=== PATIENT | female | born 2000 | race Two or more races ===

== ENCOUNTER 2023-08-28 13:00 | Emergency (ER) | payer OTHER ==
[~2023-08-28] VITALS: Ht 160 cm; Wt 44.7 kg
[2023-08-28 13:57] VITALS: BP 155/77; PULSE 104; RESP 16; TEMP 98.3; O2SAT 99
[2023-08-28] MEDS: ACETAMINOPHEN 500 MG TAB PO ONE (14:14)
[2023-08-28] MEDS ORDERED: NAPR-746 PO (14:25)
[2023-08-28] MEDS ORDERED: BACL10TA PO (14:25)
== END 2023-08-28 14:29 | disposition home or self-care (01) ==
LOC: ER 13:00
DX: S16.1XXA Strain of muscle, fascia and tendon at neck level, initial encounter (principal); S80.812A Abrasion, left lower leg, initial encounter; V43.52XA Car driver injured in collision with other type car in traffic accident, initial encounter; Y93.89 Activity, other specified; Y92.488 Other paved roadways as the place of occurrence of the external cause; Y99.8 Other external cause status
CPT/HCPCS: 72040; 73590